=== PATIENT | female | born 1965 | race Caucasian/White ===

== ENCOUNTER 2018-04-10 10:23 | Observation (INO) | payer BC ==
[2018-04-10] MEDS ORDERED: NS 0.9% 1000 ML** 1,000 ML IV ONE ×2 (11:00→12:45)
[2018-04-10] MEDS ORDERED: Ondansetron INJ* 2 MG/ML VIAL IV ONE (11:00)
--- NOTE | 2018-04-10 11:00 | ED ---
Abdominal Pain/Female - HPI Summary HPI Summary: This pt is a 52 y/o female presenting to [facility] c/o lower abdominal pain x2 days. Pt reports her abd pain worsened last night. Additionally notes nausea, vomiting, diarrhea. Denies constipation, fever, chills, chest pain, SOB. PMHx: GERD, s/p cholecystectomy. Pt states alcohol use every day and occasionally smoking marijuana. Denies tobacco use. - History of Current Complaint Chief Complaint: EDAbdPain Stated Complaint: NAUSEA/ABD PAIN Time Seen by Provider: 04/10/18 10:42 Hx Obtained From: Patient Onset/Duration: Lasting Days, Still Present Timing: Days Severity Currently: Moderate Pain Intensity: 6 Pain Scale Used: 0-10 Numeric Location: Other - lower abdomonial Radiates: No Aggravating Factor(s): Nothing Alleviating Factor(s): Nothing Associated Signs and Symptoms: Positive: Nausea, Vomiting, Diarrhea. Negative: Fever, Chest Pain, Constipation Allergies/Adverse Reactions: Allergies Allergy/AdvReac Type Severity Reaction Status Date / Time erythromycin base Allergy Unknown Verified 04/10/18 10:52 Reaction Details topical cortisone Allergy Swelling Uncoded 10/27/16 01:20 Home Medications: Home Medications Budesonide/Formote 160/4.5(NF) [Symbicort 160/4.5 (NF)] 1 puff INH BID 04/10/18 [History Confirmed 04/10/18] PMH/Surg Hx/FS Hx/Imm Hx Endocrine/Hematology History: Denies: Hx Diabetes Cardiovascular History: Denies: Hx Congestive Heart Failure, Hx Hypertension GI History: Reports: Hx Gastroesophageal Reflux Disease History: Denies: Hx Dialysis, Hx Renal Disease - Cancer History Hx Chemotherapy: No Hx Radiation Therapy: No - Surgical History Surgery Procedure, Year, and Place: Cholecystectomy Infectious Disease History: No Infectious Disease History: Denies: Traveled Outside the [place] in Last 30 Days - Family History Known Family History: Positive: Cardiac Disease, Diabetes, Other - DM - Social History Alcohol Use: Daily Alcohol Amount: 3glasses Hx Substance Use: Yes Substance Use Type: Reports: Marijuana Hx Tobacco Use: Yes Smoking Status (MU): Never Smoked Tobacco Review of Systems Negative: Fever, Chills Negative: Chest Pain Negative: Shortness Of Breath Positive: Abdominal Pain, Vomiting, Diarrhea, Nausea. Negative: Other - NEG: constipation All Other Systems Reviewed And Are Negative: Yes Physical Exam - Summary Physical Exam Summary: VITAL SIGNS: Reviewed. GENERAL: Patient is a well-developed and nourished female who is lying comfortable in the stretcher. Patient is not in any acute respiratory distress. HEAD AND FACE: Normocephalic and atraumatic. EYES: PERRLA, EOMI x 2, No injected conjunctiva. EARS: Hearing grossly intact. Ear canals and tympanic membranes are WNL. MOUTH: Oropharynx within normal limits. NECK: Supple, trachea is midline, no adenopathy, no JVD. CHEST: Symmetric, no tenderness at palpation LUNGS: Clear to auscultation bilaterally. No wheezing or crackles. CVS: RRR, S1 and S2 present, no murmurs or gallops appreciated. ABDOMEN: Soft, lower abdominal tenderness with a little bit of guarding. No signs of distention. Positive bowel sounds. No rebound and no masses palpated. No abdominal bruit or pulsations. EXTREMITIES: FROM in all major joints, no edema, no cyanosis or clubbing. NEURO: Alert and oriented x 3. No acute neurological deficits. Speech is normal. SKIN: Dry and warm Triage Information Reviewed: Yes Vital Signs On Initial Exam: Initial Vitals Temp Pulse Resp BP Pulse Ox 99.1 F 100 20 158/102 98 04/10/18 10:35 04/10/18 10:35 04/10/18 10:35 04/10/18 10:35 04/10/18 10:35 Vital Signs Reviewed: Yes Diagnostics - Vital Signs Vital Signs Temp Pulse Resp BP Pulse Ox 04/10/18 10:35 99.1 F 100 20 158/102 98 - Laboratory Result Diagrams: 04/10/18 11:15 04/10/18 11:15 Lab Statement: Any lab studies that have been ordered have been reviewed, and results considered in the medical decision making process. - CT Abdomen/pelvis CT CT Interpretation Completed By: Radiologist Summary of CT Findings: IMPRESSION: The CT appearance of the appendix with significant interval change compared with the October 27, 2016 exam is consistent with early acute appendicitis in the correct clinical context. Dr. Landin has reviewed this report. Re-Evaluation - Re-Evaluation First Eval Re-Evaluation Time: 15:25 Comment: Dr. Yen accepts the pt for admission for acute appendicitis. Abdominal Pain Fem Course/Dx - Course Course Of Treatment: Blood work without any significant abnormality except for glucose of 110, ammonia level is 61, lipase is less than 10. In the ED course the patient was given IV fluids and Zofran for the nausea and vomiting. Abdominal pelvic CT IMPRESSION: #. The CT appearance of the appendix with significant interval change compared with the October 27, 2016 exam is consistent with early acute appendicitis in the correct clinical context. Patient was assessed by Dr. Yen from surgery and he accepted the patient for admission. Patient is hemodynamically stable, alert and oriented 3. - Diagnoses Differential Diagnosis: Positive: Appendicitis, Constipation, Diverticulitis, Gall Bladder Disease, Urinary Tract Infection Provider Diagnoses: Acute appendicitis - Provider Notifications Discussed Care Of Patient With: Jamar Yen Time Discussed With Above Provider: 14:19 Instructed by Provider To: Other - Discussed pt care with Dr. Yen, surgeon , who will come see the pt in the ED. Discharge - Sign-Out/Discharge Documenting (check all that apply): Patient Departure - Admit to surgery All imaging exams completed and their final reports reviewed: Yes Patient Received Moderate/Deep Sedation with Procedure: No - Discharge Plan Condition: Good Disposition: ADMITTED TO [facility] - Billing Disposition and Condition Condition: STABLE Disposition: Admitted to [facility] - Attestation Statements Document Initiated by Octaviano: Yes Documenting Jacquelineibirvin: Zuly Rand Provider For Whom Octaviano is Documenting (Include Credential): Gray Landin MD Scribe Attestation: Zuly Noe, scribed for Gray Landin MD on 04/12/18 at 202. Scribe Documentation Reviewed: Yes Provider Attestation: The documentation as recorded by the Zuly hanson accurately reflects the service I personally performed and the decisions made by , Gray Landin MD Status of Scribe Document: Viewed
[2018-04-10 11:22] LABS: Hematocrit 44 % (35-47); Hemoglobin 15.5 g/dl (12.0-16.0); Mean Corpuscular HGB Conc 36 g/dl (31-36); Mean Corpuscular Hemoglobin 34 pg (27-31); Mean Corpuscular Volume 97 fL (80-97); Platelet Count 158 10^3/ul (150-450); Red Blood Count 4.51 10^6/ul (4.00-5.40); Red Cell Distribution Width 13 % (10.5-15); White Blood Count 10.8 10^3/ul (3.5-10.8)
--- OUTSIDE RECORDS SUMMARY | 2018-04-10 11:31 | XMS REPORT | Continuity of Care Document ---
:1965 External Reference #:[id number] Author Name Dixie Pro Care Team Providers Name Role Phone Armida Thompson MD Primary Care Physician Unavailable Payers Type Date Identification Numbers Payment Provider Subscriber Policy Number: [id number] [employer] Kika Bro Group Number: [id number] [address] PayID: [id number] MIMA Toure [id number] Advance Directives Description No Information Available Problems Date Description Provider Status Onset: 12/04/2016 Asthma Kira Kinney NP Active Onset: 12/04/2016 Hyperlipidemia Kira Kinney NP Active Onset: 12/04/2016 Gastroesophageal reflux disease Kira Kinney NP Active Onset: 12/04/2016 Restless legs Kira Kinney NP Active Onset: 06/04/2017 Essential hypertension Kira Kinney NP Active Family History Date Family Member(s) Problem(s) Comments Father Asthma Father Hypercholesterolemia Father Cancer Tongue, age 79 Mother Asthma Mother Hypercholesterolemia Mother Congestive Heart Failure (CHF) age 75 Social History Type Date Description Comments Sex Unknown Lives With Boyfriend Occupation Retail ETOH Use Currently consumes 3 glasses vodka/night alcohol Tobacco Use Start: Unknown Patient has never 2nd hand smoke smoked exposure at work 20+years Recreational Drug Use Sporadically uses Marijuana Smoking Status Reviewed: 03/18/18 Patient has never 2nd hand smoke smoked exposure at work 20+years Exercise Type/Frequency Exercises regularly very physically active, caring for horses, dogs and chickens Allergies, Adverse Reactions, Alerts Date Description Reaction Status Severity Comments 11/01/2016 Erythromycin Active 11/01/2016 Cortisone Active 06/04/2017 Tree Nuts Active Medications Medication Date Status Form Strength Qnty SIG Indications Ordering Provider Symbicort 03/18/ Active Aerosol 160-4.5mcg 1units 1 puff 2018 /Act twice a day MD Reese Benzonatate 03/18/ Active Capsules 200mg 30caps 1 by mouth J20.9 2018 three times Leigh, a day, for cough Ventolin HFA 03/18/ Active Aerosol 108(90Base 8gm 2 puffs by J45.909 2018 ) mcg/Act mouth every Leigh, 4 hours as MD needed Aerochamber MV 03/18/ Active Misc 1units use as J45.909 2018 directed Reese, with albuterol inhaler Blood Pressure 07/04/ Active Misc 1units use daily I10 Zsofia Cuff 2018 as Graham, instructed CRITICAL CARE EDUCATOR to check bp Atorvastatin 07/04/ Active Tablets 20mg 90tabs 1 by mouth E78.5 Zsofia Calcium 2018 every day MUSA Stevenson Pepcid / Active Tablets 10mg take 1 Unknown 0000 tablet by mouth two times daily as needed Ibuprofen 00/ Active Tablets 200mg as needed Unknown 0000 Symbicort 11/21/ Hx Aerosol 80-4.5mcg/ 6.900g 1 puffs 2x J45.9 Zsofia 2018 - Act m daily with Graham, 03/18/ use of CRITICAL CARE EDUCATOR 2019 spacer, rinse after use Atorvastatin 06/04/ Hx Tablets 40mg 90tabs 1 by mouth E78.5 Kira Calcium 2017 - every day Kinney, 2018 Losartan 06/04/ Hx Tablets 25mg 30tabs 1 by mouth I10 Kira Potassium 2017 - every day Kinney, [employer] 2017 Proair HFA 12/04/ Hx Aerosol 108(90Base Kira 2016 - ) mcg/Act Kinney, 2016 Sinemet 12/04/ Hx Tablets 25-100mg 30tabs 1/4 tab by Kira 2017 - mouth at Kinney, 03/18/ bedtime as [employer] 2019 needed Atorvastatin 12/04/ Hx Tablets 20mg 90tabs one tab by Kira Calcium 2017 - mouth every Kinney, 06/04/ night at [employer] 2018 bedtime Proair HFA 12/04/ Hx Aerosol 108(90Base 8.500g 2 puffs qid Kira 2016 - ) mcg/Act m as needed Kinney, 01/14/ [employer] 2019 Sinemet 00/00/ Hx Tablets 25-100mg 1 by mouth Unknown 0000 three times a day Albuterol / Hx Nebulizer (2.5mg/3ML 1 vial via Unknown Sulfate 0000 - ) 0.083% nebulizer 4 12/04/ times daily 2016 as needed Lipitor / Hx Tablets 20mg one tab by Kira 0000 - mouth every Kinney, 12/04/ night at [employer] 2017 bedtime Vitamin E / Hx Capsules 200Unit 1 by mouth Unknown 0000 - every day 2017 Atorvastatin 00/ Hx Tablets 40mg Take 1 Unknown Calcium 0000 - Tablet By 03/18/ Mouth Every 2018 Day Immunizations CPT Code Status Date Vaccine Lot # [id number] Given 12/04/2016 Tdap - Tetanus/Diptheria/Acellular Pertussis [id number] Vital Signs Date Vital Result Comment 03/18/2018 1:53pm Height 64 inches 5'4" Weight 124.38 lb Heart Rate 80 /min BP Systolic 123 mmHg BP Diastolic 79 mmHg Body Temperature 97.9 F O2 % BldC Oximetry 97 % BMI (Body Mass Index) 21.3 kg/m2 11/21/2017 3:20pm Height 64 inches 5'4" Weight 123.00 lb Heart Rate 78 /min BP Systolic Sitting 132 mmHg BP Diastolic Sitting 82 mmHg O2 % BldC Oximetry 96 % BMI (Body Mass Index) 21.1 kg/m2 07/04/2017 2:37pm Height 64 inches 5'4" Weight 127.38 lb Heart Rate 70 /min BP Systolic Sitting 142 mmHg BP Diastolic Sitting 80 mmHg O2 % BldC Oximetry 95 % BMI (Body Mass Index) 21.9 kg/m2 06/04/2017 2:21pm Weight 131.00 lb Heart Rate 71 /min BP Systolic 158 mmHg BP Diastolic 84 mmHg Body Temperature 98.0 F O2 % BldC Oximetry 96 % 12/04/2016 3:07pm Height 64 inches 5'4" Weight 125.00 lb Heart Rate 79 /min BP Systolic Sitting 120 mmHg BP Diastolic Sitting 80 mmHg Body Temperature 98.1 F O2 % BldC Oximetry 97 % BMI (Body Mass Index) 21.5 kg/m2 11/03/2016 1:46pm Height 64 inches 5'4" Weight 124.00 lb Heart Rate 72 /min BP Systolic 120 mmHg BP Diastolic 82 mmHg Respiratory Rate 16 /min Body Temperature 98.9 F BMI (Body Mass Index) 21.3 kg/m2 Results Test Date Facility Test Result H/L Range Note Comp Metabolic Panel 11/10/2017 [facility] Sodium 140 mmol/L N 135-145 [address] [place] [address] [phone] Potassium 4.8 mmol/L N 3.5-5.0 Chloride 104 mmol/L N 101-111 Co2 Carbon Dioxide 29 mmol/L N 22-32 Anion Gap 7 mmol/L N 2-11 Glucose 88 mg/dL N 70-100 Blood Urea Nitrogen 21 mg/dL N 6-24 Creatinine 0.63 mg/dL N 0.51-0.95 BUN/Creatinine Ratio 33.3 High 8-20 Calcium 9.2 mg/dL N 8.6-10.3 Total Protein 6.4 g/dL N 6.4-8.9 Albumin 4.4 g/dL N 3.2-5.2 Globulin 2.0 g/dL N 2-4 Albumin/Globulin Ratio 2.2 N 1-3 Total Bilirubin 0.80 mg/dL N 0.2-1.0 Alkaline Phosphatase 51 U/L N 34-104 Alt 16 U/L N 7-52 Ast 17 U/L N 13-39 Egfr Non- 98.5 >60 Egfr 119.2 >60 1 Lipid Profile 11/10/2017 [facility] Triglycerides 97 mg/dL 2 (Trig/Chol/HDL) [address] [place] [address] [phone] Cholesterol 254 mg/dL 3 HDL Cholesterol 83.0 mg/dL 4 LDL Cholesterol 152 mg/dL 5 Lipid Profile 05/12/2017 [facility] Triglycerides 89 mg/dL 6, 7 (Trig/Chol/HDL) [address] [place] [address] [phone] Cholesterol 261 mg/dL 8 HDL Cholesterol 71.8 mg/dL 9 LDL Cholesterol 171 mg/dL 10 Comp Metabolic Panel 05/12/2017 [facility] Sodium 139 mmol/L N 133-145 [address] [place] [address] [phone] Potassium 4.1 mmol/L N 3.5-5.0 Chloride 105 mmol/L N 101-111 Co2 Carbon Dioxide 26 mmol/L N 22-32 Anion Gap 8 mmol/L N 2-11 Glucose 94 mg/dL N 70-100 Blood Urea Nitrogen 21 mg/dL N 6-24 Creatinine 0.56 mg/dL N 0.51-0.95 BUN/Creatinine Ratio 37.5 High 8-20 Calcium 9.3 mg/dL N 8.6-10.3 Total Protein 6.8 g/dL N 6.4-8.9 Albumin 4.5 g/dL N 3.2-5.2 Globulin 2.3 g/dL N 2-4 Albumin/Globulin Ratio 2.0 N 1-3 Total Bilirubin 0.70 mg/dL N 0.2-1.0 Alkaline Phosphatase 55 U/L N 34-104 Alt 11 U/L N 7-52 Ast 16 U/L N 13-39 Egfr Non- 113.2 >60 Egfr 145.6 >60 11 Laboratory test 10/27/2016 [facility] Surgical SEE RESULT [address] Pathology BELOW [place] [id number] [phone] 1 Because ethnic data is not always readily available, this report includes an eGFR for both -Americans and non- Americans. The National Kidney Disease Education Program (NKDEP) does not endorse the use of the MDRD equation for patients that are not between the ages of 18 and 70, are , have extremes of body size, muscle mass, or nutritional status, or are non- or non-. According to the National Kidney Foundation, irrespective of diagnosis, the stage of the disease is based on the level of kidney function: Stage Description GFR(mL/min/1.73 m(2)) 1 Kidney damage with normal or decreased GFR 90 2 Kidney damage with mild decrease in GFR 60-89 3 Moderate decrease in GFR 30-59 4 Severe decrease in GFR 15-29 5 Kidney failure <15 (or dialysis) 2 Desirable: <150 Borderline High: 150-199 High: 200-499 Very High: >500 3 Desirable: <200 Borderline High: 200-239 High: >239 4 Low: <40 Desirable: 40-60 High: >60 5 Desirable: <100 Near Optimal: 100-129 Borderline High: 130-159 High: 160-189 Very High: >189 6 FASTING 7 Desirable: <150 Borderline High: 150-199 High: 200-499 Very High: >500 8 Desirable: <200 Borderline High: 200-239 High: >239 9 Low: <40 Desirable: 40-60 High: >60 10 Desirable: <100 Near Optimal: 100-129 Borderline High: 130-159 High: 160-189 Very High: >189 11 Because ethnic data is not always readily available, this report includes an eGFR for both -Americans and non- Americans. The National Kidney Disease Education Program (NKDEP) does not endorse the use of the MDRD equation for patients that are not between the ages of 18 and 70, are , have extremes of body size, muscle mass, or nutritional status, or are non- or non-. According to the National Kidney Foundation, irrespective of diagnosis, the stage of the disease is based on the level of kidney function: Stage Description GFR(mL/min/1.73 m(2)) 1 Kidney damage with normal or decreased GFR 90 2 Kidney damage with mild decrease in GFR 60-89 3 Moderate decrease in GFR 30-59 4 Severe decrease in GFR 15-29 5 Kidney failure <15 (or dialysis) 12 SEE RESULT BELOW Name: KIKA BRO : [address]: Baldev ABREU Acct: [id number] Unit: [id number] AGE: 51 Location: OR Re10/27/16 SEX: F Status: KATINA HAINES SPEC: [id number] ANDRÉS: 10/27/[address] [facility] [address]: Wiliam Braga MD REQ: [id number] RECD: 10/27/16 STATUS: ARNULFO TRAN DR: Baldev Limon PA _ ORDERED: LEVEL 3 FINAL DIAGNOSIS Gallbladder, cholecystectomy: -- Marked acute cholecystitis. PRE-OPERATIVE DIAGNOSIS Acute cholecystitis GROSS DESCRIPTION The specimen is received in formalin labeled, Gallbladder, and consists of an 8.0 x 3.5 x 1.7 cm focally disrupted gallbladder. The serosa is predominantly smooth mottled to speckled wheatley-brown to craig with a small amount of adherent yellow-white fat. The lumen contains abundant green yellow viscid to gelatinous bile. Choleliths are not identified within the lumen or the container. The mucosa is shaggy to velvety wheatley-craig with rare mucosal polyps measuring up to 0.2 cm. The wall thickness measures up to 0.2 cm. Etcher Enameling sections, one cassette. Signed (signature on file) Jazmine Patel MD 1002 END OF REPORT * ML=Testing performed at Main Lab DEPARTMENT OF PATHOLOGY, [address] [place] [address] Levi Newton M.D. Director [facility] # [id number] Procedures Date Code Description Status 10/27/2016 00171 Laparoscopy Cholecystectomy Completed 05/29/2016 [id number] Colonoscopy Completed 07/06/2015 [id number] Mammogram Completed Encounters Type Date Location Provider Dx Diagnosis Office Visit 11/21/2017 [facility] Internal Hilda Stevenson, Z00.00 Encntr for general 3:20p Medicine - [place] CRITICAL CARE EDUCATOR adult medical exam Rd w/o abnormal findings J45.909 Unspecified asthma, uncomplicated I10 Essential (primary) hypertension E78.5 Hyperlipidemia, unspecified N95.1 Menopausal and female climacteric states S90.01xA Contusion of right ankle, initial encounter Office Visit 07/04/2017 2:40p [facility] Internal Stevenofia Graham, I10 Essential ( primary) Medicine - [place] CRITICAL CARE EDUCATOR hypertension Rd E78.5 Hyperlipidemia, unspecified Office Visit 06/04/2017 [facility] Internal Kira E78.5 Hyperlipidemia, 2:30p Jeny Kinney NP unspecified [address] I10 Essential (primary) hypertension Office Visit 12/04/2016 2:50p [facility] Internal Kira Z23 Encounter for Jeny Kinney NP immunization [address] [address] E78.5 Hyperlipidemia, unspecified J45.909 Unspecified asthma, uncomplicated G25.81 Restless legs syndrome Office Visit 10/27/2016 [facility] K81.0 Acute cholecystitis 7:[facility] Plan of Treatment Future Appointment(s):05/22/2018 2:20 pm - MUSA Anderson at [facility] Internal Medicine - [address]03/18/2018 - Kathy Leigh MDJ20.9 Acute bronchitis, unspecifiedNew Medication:Benzonatate 200 mg - 1 by mouth three times a day, for coughComments:I recommend plain Mucinex, lots of fluids, nasal saline.Most bronchitis is viral and cough lasts on average 2 weeks. If you get worsening symptoms or are coughing after 2 weeks, please return for re-vkuwbR97.909 Unspecified asthma, uncomplicatedNew Medication:Ventolin HFA 108(90 Base) mcg/ Act - 2 puffs by mouth every 4 hours as neededAerochamber MV - use as directed with albuterol inhalerComments:Symbicort is to be used two a times a day, no matter how your lungs are doingRescue inhaler can be used every 4 hours for chest tightness, wheezing, shortness of hfivroP09.22 Impacted cerumen, left earComments:For your ear wax:I would advise you to use Debrox drops every night for at least a week, then returnfor a nurse visit for cleaning.
[2018-04-10 11:41] LABS: ALT 13 U/L (7-52); AST 14 U/L (13-39); Albumin 4.5 g/dL (3.2-5.2); Albumin/Globulin Ratio 1.8 (1-3); Alkaline Phosphatase 54 U/L (34-104); Anion Gap 10 mmol/L (2-11); Blood Urea Nitrogen 19 mg/dL (6-24); C Reactive Protein 3.55 mg/L (<8.01); CO2 Carbon Dioxide 26 mmol/L (22-32); Calcium 9.3 mg/dL (8.6-10.3); Chloride 102 mmol/L (101-111); EGFR African American 155.6 (>60); EGFR Non-African American 128.6 (>60); Globulin 2.5 g/dL (2-4); Glucose 110 mg/dL (70-100); Magnesium 2.1 mg/dL (1.9-2.7); Potassium 3.5 mmol/L (3.5-5.0); Sodium 138 mmol/L (135-145)
[2018-04-10] MEDS ORDERED: Iohexol 300* (CONTRAST) 10 ML SDV IV ONE (12:15)
[2018-04-10 12:19] LABS: ABS Basophils 0.1 10^3/ul (0-0.2); ABS Eosinophils 0 10^3/ul (0-0.6); ABS Lymphocytes 1.1 10^3/ul (1.0-4.8); ABS Monocytes 0.8 10^3/ul (0-0.8); ABS Neutrophils 8.8 10^3/ul (1.5-7.7); ABS Nucleated RBC 0 10^3/ul; Eosinophil % 0.1 %; Large Platelets Present; Lymphocyte % 9.8 %; Nucleated Red Blood Cells % 0
[2018-04-10 12:34] LABS: Urine Appearance Cloudy; Urine Bacteria Absent (Absent); Urine Bilirubin Negative (Negative); Urine Blood 1+ (Negative); Urine Color Yellow; Urine Glucose Negative (Negative); Urine Ketones 1+ (Negative); Urine Nitrite Negative (Negative); Urine Protein 2+(100 mg/dL) (Negative); Urine Red Blood Cell Trace(0-2/hpf) (Absent); Urine Specific Gravity 1.017 (1.010-1.030); Urine Squamous Epithelial Cell Present (Absent); Urine Urobilinogen Negative (Negative); Urine White Blood Cell Trace(0-5/hpf) (Absent)
[2018-04-10] MEDS ORDERED: Morphine VIAL* 10 MG/ML 1 ML VIAL IV ONE (14:06)
[2018-04-10] MEDS ORDERED: Bupivacaine 0.5%* 50 ML VIAL ONE (15:41)
[2018-04-10] MEDS ORDERED: Ketorolac INJ* 30 MG/ML 1 ML VIAL IV PRN (15:48)
[2018-04-10] MEDS ORDERED: DiMENhydriNATE IV* 50 MG/ML VIAL IV PUSH PRN (15:48)
[2018-04-10] MEDS ORDERED: fentaNYL* 50 MCG/ML 2 ML VIAL (100 MCG VIAL) IV PRN (15:48)
[2018-04-10] MEDS ORDERED: Acetaminophen TAB* 325 MG PO PRN (15:48)
[2018-04-10] MEDS ORDERED: Naloxone* 0.4 MG/ML 1 ML VIAL IV PRN (15:48)
[2018-04-10] MEDS ORDERED: HYDROcodone/ACETAMIN 5-325 MG* 1 TAB PO PRN (15:48)
[2018-04-10] MEDS ORDERED: ZOSYN 3.375 GM x ONE DOSE over 30 miuntes IVPB ×2 (16:00)
[2018-04-10] MEDS ORDERED: fentaNYL* 50 MCG/ML 5 ML VIAL (250 MCG VIAL) ONE (16:04)
[2018-04-10] MEDS ORDERED: Rocuronium* 10 MG/ML VIAL ONE (16:04)
[2018-04-10] MEDS ORDERED: Midazolam* 1 MG/ML 2 ML VIAL (2 MG) ONE (16:04)
[2018-04-10] MEDS ORDERED: Neostigmine Methylsulfate* 3 MG/3 ML SYRINGE ONE (16:48)
[2018-04-10] MEDS ORDERED: Ondansetron INJ* 2 MG/ML VIAL ONE (16:49)
[2018-04-10] MEDS ORDERED: Phenylephrine IV* 40 MCG/ML 10 ML SYRINGE ONE (16:49)
[2018-04-10] MEDS ORDERED: Propofol* 10 MG/ML 20 ML BTL ONE (16:49)
[2018-04-10] MEDS ORDERED: EPHEDrine (Pressors)* 50 MG/ML VIAL ONE (16:49)
[2018-04-10] MEDS ORDERED: Lidocaine 2% PF * 5 ML VIAL ONE (16:49)
[2018-04-10] MEDS ORDERED: Glycopyrrolate IV* 0.2 MG/ML 1 ML VIAL ONE (16:49)
[2018-04-10] MEDS ORDERED: Dexamethasone IV* 4 MG/ML 1 ML (4 MG) ONE (16:49)
[2018-04-10] MEDS ORDERED: Succinylcholine* 20 MG/ML 10 ML VIAL ONE (16:49)
--- NOTE | 2018-04-10 17:15 | BRIEFOPN ---
Brief Operative Note - Surgery Procedures: OPERATIVE REPORT PRE-OP: Acute appendicitis POST-OP:Same PROCEDURE:Laparoscopic appendectomy SURGEON: MD Farshad ANESTHESIA:Local with General, Dr. Dominguez ASST:none IVF:One liter of crystalloid EBL:min SPECIMEN:appendix DRAIN: none WOUND CLASS:3 COMPLICATIONS: none TO PACU
--- NOTE | 2018-04-10 17:17 | HP ---
ADMISSION HISTORY AND PHYSICAL: DATE OF ADMISSION: 04/10/18 CHIEF COMPLAINT: Right lower quadrant abdominal pain with nausea and vomiting. HISTORY OF PRESENT ILLNESS: Ms. Kika Bro is a 52-year-old woman who, on Sunday this week, developed some abdominal discomfort associated with nausea and vomiting. She had multiple loose bowel movements during that day, but that has resolved. She has been anorexic, but only able to keep small amounts of liquids down. She has had no fevers, shakes, or chills. The pain worsened over the course of the day and today when it was bothering her more and making it difficult to ambulate, she presented to the emergency room. Here in the emergency room, she was noted to be afebrile. She was noted to have tenderness in the right lower quadrant of her abdomen. Laboratory workup, however, included a white blood cell count of 10.8. Electrolytes, BUN and creatinine were normal. She had a normal C-reactive protein and a normal lipase. She underwent a CT scan of the abdomen and pelvis. I did review these images. This shows a thick and dilated appendix without any contrast or air in the lumen. There was no significant surrounding inflammation or abscess; however, the findings were consistent with acute appendicitis in the correct clinical context. PAST MEDICAL HISTORY: 1. Gastroesophageal reflux disease. 2. Asthma with COPD. 3. Hypercholesterolemia. PAST SURGICAL HISTORY: Laparoscopic cholecystectomy. MEDICATIONS: Include: 1. Symbicort. 2. Albuterol inhaler. 3. Lipitor. 4. Pepcid. ALLERGIES: ERYTHROMYCIN and TOPICAL CORTISONE. SOCIAL HISTORY: She lives with her significant other. She does not use tobacco , but smokes marijuana on occasion. She drinks alcohol regularly. She is employed. REVIEW OF SYSTEMS: Otherwise unremarkable. PHYSICAL EXAMINATION GENERAL: Well-developed, well-nourished female, in no apparent distress. VITAL SIGNS: Temperature 99.1, pulse 86, blood pressure 140/106. LUNGS: Clear to auscultation with normal respiratory effort. HEART: Regular rate and rhythm without murmurs, rubs, or gallops. ABDOMEN: Soft and nondistended. She has tenderness in the right lower quadrant with some voluntary guarding. There is well-healed laparoscopic incision in the upper right abdomen without hernia. PSYCHIATRIC: She is awake, alert, and oriented x3. She has normal judgment and insight. IMPRESSION: Acute appendicitis. PLAN: Laparoscopic appendectomy today. I discussed the findings with her history, physical exam and the CT scan. I do recommend that she undergo a laparoscopic appendectomy. We discussed alternatives to treatment of acute appendicitis including IV antibiotics, but I feel with her illness the last 48 hours and the findings on the CT scan, she would benefit from appendectomy and would result in her quickest recovery and discharge home. I discussed the procedure with her, and the risks of, but not limited to, bleeding, infection, intraabdominal abscess formation, injury to peritoneal and retroperitoneal structures, possibility of an open procedure, as well as the risks of anesthesia. We also discussed probable hospital stays and recovery times. Her questions were answered. She will receive IV antibiotics and be kept n.p.o. She already has been started on IV fluids. Written informed consent has been obtained. [id number]/CPS #: [id number] JOSEPH
[2018-04-10] MEDS ORDERED: Ketorolac INJ* 30 MG/ML 1 ML VIAL IV PUSH PRN (17:18)
[2018-04-10] MEDS ORDERED: oxyCODONE/Acetamin 5/325 MG* TAB PO PRN (17:18)
[2018-04-10] MEDS ORDERED: Ondansetron INJ* 2 MG/ML VIAL IV PRN (17:18)
[2018-04-10] MEDS ORDERED: Famotidine IV* 10 MG/ML 2 ML (20 mg) ONE (17:50)
[2018-04-10] MEDS: Lactated Ringers 1000 ML Bag* 1,000 ML IV SCH (19:06)
[2018-04-10] MEDS: Famotidine IV* 10 MG/ML 2 ML (20 mg) IV SLOW PU SCH (21:17)
--- NOTE | 2018-04-10 21:24 | OP ---
DATE OF OPERATION: 04/10/18 - ROOM #341 DATE OF : 61 SURGEON: Jamar Yen MD [employer] SU[employer] TEACHER: None. ANESTHESIOLOGIST: Dr. Frazier. ANESTHESIA: General with local. PRE-OP DIAGNOSIS: Acute appendicitis. POST-OP DIAGNOSIS: Acute appendicitis. OPERATIVE PROCEDURE: Laparoscopic appendectomy. WOUND CLASSIFICATION: III. DRAINS: None. COMPLICATIONS: None. SPECIMEN: Appendix. FINDINGS: The distal half of the appendix was firm and indurated, although there are no signs of suppuration or gangrene or perforation. The mesentery of the appendix was also edematous consistent with acute inflammation. DESCRIPTION OF PROCEDURE: Written informed consent was obtained, the abdomen was marked with indelible ink and preoperative antibiotics were administered. The patient was taken to the operating room and placed in a supine position. Sequential compression devices and a warming blanket were applied. The abdomen was prepped and draped in usual sterile fashion. Time-out verification was completed. Initially, a vertical incision was made in the inferior base of the umbilicus, the peritoneal cavity was entered under direct vision. A 12-mm blunt port was inserted and the abdomen was insufflated to 15 mmHg. Under direct vision, a 5-mm port was placed in the left lower quadrant abdominal wall and a second 5-mm port was placed in the suprapubic position. The terminal ileum was identified. It was unremarkable, but there was no evidence of fluid in the pelvis. The liver appeared to be unremarkable. The right colon was unremarkable as well as the cecum. The appendix was identified. It was completely intraperitoneal. The distal half of the appendix was indurated and firm and the mesentry appeared to be somewhat edematous. There was no evidence of suppuration or fluid surrounding this, however. Base of the cecum was unremarkable. The mesoappendix was then divided sequentially with a LigaSure from the distal to the base of the appendix and a wheatley load of an EndoGIA 45-mm stapler was used to amputate the appendix at its base. The appendix was removed through the umbilical incision with an EndoCatch bag. Staple line was intact without bleeding. Hemostasis was assured. The right lower quadrant and pelvis were irrigated. No other abnormality signs were noted. Under direct vision, all ports were removed and there was no abdominal wall bleeding. The umbilical fascia was closed with 0 Vicryl suture. The skin at all three incisions was approximated with subcuticular 4-0 Vicryl suture. Steri-Strips were applied. The patient tolerated the procedure well and was taken to the recovery room in stable condition. [id number]/[facility] #: [id number] JOSEPH
[2018-04-11] MEDS: Lactated Ringers 1000 ML Bag* 1,000 ML IV SCH (01:56)
[2018-04-11] MEDS: Acetaminophen TAB* 325 MG PO PRN ×2 (03:25→09:33)
[2018-04-11] MEDS: Famotidine IV* 10 MG/ML 2 ML (20 mg) IV SLOW PU SCH (09:34)
--- NOTE | 2018-04-11 11:04 | PN ---
Progress Note - Progress Note Date of Service: 04/11/18 SOAP: Subjective: Doing well-nausea resolved and she is tolerating liquids Pain adequately controlled-ambulating Passing flatus Objective: Temp Pulse Resp BP Pulse Ox 98.5 F 68 16 123/79 97 04/11/18 07:28 04/11/18 07:28 04/11/18 07:41 04/11/18 07:28 04/11/18 07:41 PEX: COmfortabel Lungs are clear Abd is soft and non-distended. Bowel sounds are present. Incisions CDI Assessment: POD#1 s/p abi appy for acute appendicitis Plan: D/C home today No abx Office follow up
[2018-04-11 11:30] VITALS: BP 128/76
--- NOTE | 2018-04-11 11:51 | DS ---
CC: Hilda Stevenson NP at [facility] * DATE OF ADMISSION: 04/10/2018. DATE OF DISCHARGE: 04/11/2018. ATTENDING SURGEON: Dr. Jamar Yen * (LOIS Gonzalez dictating). HOSPITAL COURSE: Please refer to admission history and physical and operative note for details. The patient was admitted 04/10/2018 with signs, symptoms, and CT scan suggestive of acute appendicitis. She was taken to the operating room that evening and underwent laparoscopic appendectomy with Dr. Yen. She has had an uneventful postoperative course and she is tolerating diet and pain is well controlled with oral medications as of the morning of discharge. Her vital signs are stable and she is afebrile. Laparoscopic incision sites show some dried blood only. She will be discharged today. Instructions regarding wound care, diet, and activity were reviewed. She has a follow-up with our office on 04/18/2018. A prescription was e-sent to her pharmacy for [place] 5/325 for stronger pain. LOIS GONZALEZ [id number]/[facility] #: [id number] MTDD
== END 2018-04-11 11:33 | disposition home or self-care (01) ==
LOC: ED 10:23 → OR 15:24 → SSU 19:18
PROVIDERS: ADMIT Surgery; ATTEND Surgery
DX: K35.80 Unspecified acute appendicitis (principal); R10.31 Right lower quadrant pain; K21.9 Gastro-esophageal reflux disease without esophagitis; R11.2 Nausea with vomiting, unspecified; J44.9 Chronic obstructive pulmonary disease, unspecified; E78.00 Pure hypercholesterolemia, unspecified; R05 Cough; Z90.49 Acquired absence of other specified parts of digestive tract; Z86.718 Personal history of other venous thrombosis and embolism
CPT/HCPCS: 36415; 74177; 80053; 81003; 81015; 82140; 83605; 83690; 83735; 84484; 85025; 86140; 87086; 88304; 96361; 96374; 96376; 99284; A9270-GY; C1776; G0378; J0330; J1100; J1885; J2250; J2270; J2405; J2543; J2704; J2710; J3010; Q9967

== ENCOUNTER 2023-08-08 14:27 | Observation (INO) ==
[2023-08-08 14:47] LABS: Hematocrit 43.8 % (35-45); Hemoglobin 14.7 g/dL (11.5-14.3); Mean Corpuscular Hemoglobin 33.1 pg (27-33); Mean Corpuscular Hgb Conc 33.5 g/dL (31-36); Mean Corpuscular Volume 98.8 fL (80-97); Red Blood Count 4.43 10^6/uL (3.63-4.92); Red Cell Distribution Width 13.1 % (12-17); White Blood Count 14.4 10^3/uL (3.8-11.8)
[2023-08-08 14:51] LABS: INR 0.9 (0.83-1.13)
[2023-08-08 15:25] LABS: ABS Basophils 0.1 10^3/uL (0.0-0.1); ABS Lymphocytes 1.5 10^3/uL (1.0-4.8); ABS Monocytes 0.8 10^3/uL (0.0-0.9); ABS Neutrophils 12.1 10^3/uL (1.5-7.6); ABS Nucleated RBC 0.01 10^3/ul; Lymphocyte % 10.2 %; Mean Platelet Volume 11.5 fL (7.5-11.2); Nucleated Red Blood Cells % 0.1 %/100WBC (0.0-0.8); Platelet Count 208 10^3/uL (150-450)
[2023-08-08 15:46] LABS: Albumin/Globulin Ratio 2.3 (1-3); Calcium 9.4 mg/dL (8.6-10.3); Creatinine, Serum 0.88 mg/dL (0.51-0.95); Globulin 2.2 g/dL (2-4); Potassium 3.3 mmol/L (3.5-5.0); Total Bilirubin 0.8 mg/dL (0.2-1.0); Total Protein 7.2 g/dL (6.4-8.9); eGFR CKD-EPI 75.2 (>60)
[2023-08-08 16:08] LABS: High Sensitivity Troponin 1 Hr 15 pg/mL (<15)
[2023-08-08] MEDS: Iohexol 350 (CONTRAST) 500 ML MDV IV ONE (16:20)
[2023-08-08] MEDS: Metoprolol Tartrate 5 mg VIAL 5 ml VIAL (1 mg/ml) IV ONE (17:44)
[2023-08-08] MEDS: Ondansetron 4 mg VIAL 2 MG/ML 2 ml VIAL IV ONE (17:44)
[2023-08-08] MEDS ORDERED: Albuterol HFA INHALER 8 gm MDI INH PRN (18:11)
[2023-08-08 18:32] LABS: High Sensitivity Troponin 3 Hr 15 pg/mL (<15)
[2023-08-08] MEDS ORDERED: Zosyn per Pharmacy NOTE FOLLOW UP SCH (19:00)
[2023-08-08] MEDS: Mometasone/Formoter 200/5 MDI INH SCH (19:38)
[2023-08-08] MEDS: Piperacillin/Tazobac 3.375 BAG 3.375 GM/100 ML BAG IV ONE (20:56)
[2023-08-08] MEDS: Pantoprazole VIAL 40 MG VIAL IV SCH (20:56)
[2023-08-08] MEDS: NS 0.9% w/ 20 Meq KCL 1000 ml 1,000 ML IV SCH (21:01)
[2023-08-08] MEDS: hydrALAZINE 20 mg/ml 1 ML Vial IV IV SLOW PU PRN (23:39)
[2023-08-09] MEDS: Ondansetron 4 mg VIAL 2 MG/ML 2 ml VIAL IV PRN (00:06)
[2023-08-09] MEDS: ZOSYN 3.375 GM Q8H per EXTENDED INFUSION IV SCH ×2 (01:50→03:02)
[2023-08-09 06:00] LABS: Calcium 8.2 mg/dL (8.6-10.3); Creatinine, Serum 0.53 mg/dL (0.51-0.95); Potassium 3.3 mmol/L (3.5-5.0); eGFR CKD-EPI 105.8 (>60)
[2023-08-09 06:01] LABS: Hematocrit 40.7 % (35-45); Hemoglobin 13.8 g/dL (11.5-14.3); Mean Corpuscular Hemoglobin 33.3 pg (27-33); Mean Corpuscular Hgb Conc 33.9 g/dL (31-36); Mean Corpuscular Volume 98.1 fL (80-97); Red Blood Count 4.15 10^6/uL (3.63-4.92); Red Cell Distribution Width 13.1 % (12-17); White Blood Count 11.7 10^3/uL (3.8-11.8)
[2023-08-09 07:28] LABS: ABS Lymphocytes 0.9 10^3/uL (1.0-4.8); ABS Monocytes 0.7 10^3/uL (0.0-0.9); ABS Neutrophils 10.1 10^3/uL (1.5-7.6); ABS Nucleated RBC 0.01 10^3/ul; Large Platelets Present; Lymphocyte % 7.8 %; Nucleated Red Blood Cells % 0.1 %/100WBC (0.0-0.8); Platelet Count 174 10^3/uL (150-450)
[2023-08-09] MEDS ORDERED: Magnesium Hydroxide LIQ 30 ML UDC PO PRN (12:32)
[2023-08-09] MEDS ORDERED: Senna TAB 8.6 mg TAB PO PRN (12:32)
[2023-08-09] MEDS: KCL 20 MEQ/100 ML IVPREMIX 20 MEQ/100 ML BAG IV SCH (13:00)
[2023-08-09] MEDS: Polyethylene Glycol 3350 17 GM PACKET PO SCH (13:44)
[2023-08-09] MEDS: Magnesium Hydroxide LIQ 30 ML UDC PO SCH (13:44)
[2023-08-09] MEDS ORDERED: Albuterol/Ipratropium NEB.SOL (2.5/0.5 MG) 3 ML NEB.SOLN INH PRN (14:47)
[2023-08-10] MEDS: levETIRAcetam 1000MG IVPREMIX 1,000 MG/100 ML BAG IVPB ONE (05:18)
[2023-08-10 05:36] LABS: ABS Basophils 0.1 10^3/uL (0.0-0.1); ABS Lymphocytes 2.8 10^3/uL (1.0-4.8); ABS Monocytes 1.1 10^3/uL (0.0-0.9); ABS Neutrophils 10.2 10^3/uL (1.5-7.6); ABS Nucleated RBC 0.01 10^3/ul; Eosinophil % 0.1 %; Hematocrit 44.1 % (35-45); Hemoglobin 15.3 g/dL (11.5-14.3); Lymphocyte % 19.8 %; Mean Corpuscular Hemoglobin 34.5 pg (27-33); Mean Corpuscular Hgb Conc 34.7 g/dL (31-36); Mean Corpuscular Volume 99.4 fL (80-97); Mean Platelet Volume 11.9 fL (7.5-11.2); Nucleated Red Blood Cells % 0.1 %/100WBC (0.0-0.8); Platelet Count 181 10^3/uL (150-450); Red Blood Count 4.44 10^6/uL (3.63-4.92); Red Cell Distribution Width 12.9 % (12-17); White Blood Count 14.3 10^3/uL (3.8-11.8)
[2023-08-10] MEDS: Lactated Ringers 1000 ml BAG 1,000 ML IV ONE (05:37)
[2023-08-10 05:57] LABS: Calcium 8.7 mg/dL (8.6-10.3); Creatinine, Serum 0.64 mg/dL (0.51-0.95); Magnesium 2.7 mg/dL (1.9-2.7); Phosphorus 3.2 mg/dL (2.5-5.0); Potassium 3.3 mmol/L (3.5-5.0); eGFR CKD-EPI 101.1 (>60)
[2023-08-10] MEDS: Gadoteridol (CONTRAST) 279.3 MG/ML 10 ML IV ONE (13:43)
[2023-08-10] MEDS: Sulfur Hexaflouride MICROSPHR 25 MG VIAL IV ONE (14:55)
[2023-08-10] MEDS: Thiamine 100 MG/ML 2 ml VIAL 250 MG in NS 0.9% 100 ml BAG 100 ML IV SCH (15:45)
[2023-08-10] MEDS: Multivitamins/Minerals TAB PO SCH (15:46)
[2023-08-11 10:04] VITALS: BP 128/86
== END 2023-08-11 11:40 | disposition home or self-care (01) ==
LOC: EDHOLD 14:27 → ED 14:27 → MEDTELE 22:47
PROVIDERS: ADMIT Internal Medicine; ATTEND Internal Medicine